=== PATIENT | female | born 1990 | race Caucasian/White ===

== ENCOUNTER 2017-06-01 17:29 | Emergency (ER) | payer OTHER ==
[~2017-06-01] VITALS: Wt 117.9 kg
[~2017-06-01 17:29] MED LIST: ALBUTEROL0.09 MG/A2; BACTRIM DS 8001 TA1 PO; BENTYL20 MG PO; CIPRO250 MG PO; CIPRO500 MG PO; CLINDAMYCIN150 MG PO; DONNATAL1 TAB PO; DOXYCYCLINE HY100 M3 PO; IBUPROFEN600 MG PO; LOMOTIL 0.025 M1 TAB PO; MACROBID100 M1 PO; NEXIUM40 MG PO; PEPCID20 MG PO; PROTONIX40 MG PO; PYRIDIUM200 MG PO; TRAMADOL HCL50 MG PO; VICODIN 5/500 505 MG; ZANTAC150 MG PO; ZOFRAN ODT4 MG PO; ZOFRAN4 MG PO; Zofran4 MG PO
[2017-06-01 17:40] VITALS: BP 122/81
[2017-06-01] MEDS ORDERED: Motrin,Rufen800 MG PO (19:17)
== END 2017-06-01 19:21 | disposition home or self-care (01) ==
LOC: ED 17:29
DX: S93.402A Sprain of unspecified ligament of left ankle, initial encounter (principal); F17.200 Nicotine dependence, unspecified, uncomplicated; Z88.0 Allergy status to penicillin; X50.1XXA Overexertion from prolonged static or awkward postures, initial encounter; Y93.89 Activity, other specified; Y92.9 Unspecified place or not applicable; Y99.9 Unspecified external cause status